=== PATIENT | male | born 1990 | race African-American/Black ===

== ENCOUNTER 2017-06-30 17:42 | Emergency (ER) | payer OTHER ==
[~2017-06-30] VITALS: Ht 162.6 cm; Wt 78.2 kg
[2017-06-30] MEDS ORDERED: BUSP10TA PO (17:48)
[2017-06-30] MEDS ORDERED: LEXA1TAB2 PO (17:48)
[2017-06-30] MEDS ORDERED: LIDOCAINE 1% MDV 20ML VIAL As Ordered ONE (19:13)
[2017-06-30] MEDS ORDERED: cefTRIAXone SOD 250 MG VIAL (J0696) IM ONE (19:15)
[2017-06-30] MEDS ORDERED: AZITHROMYCIN 250 MG TAB PO ONE (19:15)
[2017-06-30 19:34] VITALS: BP 142/71
== END 2017-06-30 19:35 | disposition home or self-care (01) ==
LOC: M ED 17:42
DX: R39.15 Urgency of urination (principal); F41.9 Anxiety disorder, unspecified; F17.210 Nicotine dependence, cigarettes, uncomplicated
CPT/HCPCS: 81001; 87491; 87591; 96372; 99284; J0696

== ENCOUNTER 2019-03-27 17:06 | Emergency (ER) | payer OTHER ==
[~2019-03-27] VITALS: Ht 162.6 cm; Wt 85.3 kg
[~2019-03-27 17:06] MED LIST: BUSP10TA PO; LEXA1TAB2 PO
[2019-03-27] MEDS ORDERED: BUPR150T3 PO (17:14)
[2019-03-27] MEDS ORDERED: VITA-122 PO (17:14)
[2019-03-27] MEDS ORDERED: HYDR-643 PO (17:14)
[2019-03-27] MEDS ORDERED: KETOROLAC TROMETHAMINE 10 MG TAB PO ONE (18:00)
[2019-03-27] MEDS ORDERED: PROMETHAZINE 25 MG TAB PO ONE (18:00)
[2019-03-27] MEDS ORDERED: diphenhydrAMINE 50 MG CAP PO ONE (18:00)
--- NOTE | 2019-03-27 19:10 | REPVR ---
EXAM: CT Head Without Contrast EXAM DATE/TIME: 03/27/2019 6:25 PM CLINICAL HISTORY: 28 years old, male; Pain; Headache not specified; Additional info: [employer] [facility], started suddenly 3 days ago TECHNIQUE: Imaging protocol: Computed tomography of the head without contrast. Radiation optimization: All CT scans at this facility use at least one of these dose optimization techniques: automated exposure control; mA and/or kV adjustment per patient size (includes targeted exams where dose is matched to clinical indication); or iterative reconstruction. COMPARISON: No relevant prior studies available. FINDINGS: Brain: No CT evidence of acute cortical infarct. No mass effect. No edema. There is no evidence of parenchymal hemorrhage. No extra-axial collections. No subarachnoid blood. Ventricles: The ventricular system is midline and appropriate in size. No hydrocephalus. Bones/joints: There is no evidence of acute fracture. Sinuses: The demonstrated paranasal sinuses are free of air-fluid level or suspicious mass. Mastoid air cells: Mastoids are free of acute inflammatory change. Soft tissues: No large soft tissue hematoma. Please correlate clinically. IMPRESSION: No acute intracranial injury demonstrated. No intracranial hemorrhage. No evidence of acute cortical infarct. No mass effect. No edema. Followup as clinically warranted. Electronically signed by: Ry Woodson On 03/27/2019 19:10:32 PM
[2019-03-27 19:45] VITALS: BP 134/85
== END 2019-03-27 19:50 | disposition home or self-care (01) ==
LOC: M ED 17:06
DX: R51 Headache (principal); F41.9 Anxiety disorder, unspecified; F32.9 Major depressive disorder, single episode, unspecified; Z79.899 Other long term (current) drug therapy

== ENCOUNTER 2021-03-23 19:20 | Emergency (ER) | payer OTHER ==
[~2021-03-23] VITALS: Ht 165.1 cm; Wt 91.9 kg
[~2021-03-23 19:20] MED LIST changes: +BUPR150T12 PO; +HYDR-643 PO; +VITA-122 PO
[2021-03-23] MEDS ORDERED: TRAZ-252 PO (19:58)
[2021-03-23 22:02] LABS: APPEARANCE, URINE CLEAR (CLEAR); BACTERIA, URINE AUTO NEGATIVE (NEGATIVE); BILIRUBIN, URINE AUTO NEGATIVE (NEGATIVE); BLOOD, URINE BLOOD NEGATIVE (NEGATIVE); COLOR, URINE YELLOW (YELLOW); GLUCOSE, URINE (UA) AUTO NEGATIVE (NEGATIVE); KETONE, URINE AUTO NEGATIVE (NEGATIVE); LEUKOCYTE ESTERASE, URINE AUTO TRACE (NEGATIVE); MUCUS, URINE SMALL (NEGATIVE); NITRITE, URINE AUTO NEGATIVE (NEGATIVE); PROTEIN, URINE AUTO NEGATIVE (NEGATIVE); RBC, URINE AUTO 5 /HPF (0-3); SPECIFIC GRAVITY URINE AUTO 1.029 (1.002-1.035); SQUAMOUS EPITHELIAL CELL UR AU 1 /HPF (0-6); UROBILINOGEN, URINE AUTO 0.2 mg/dL (0.0-2.0); WBC, URINE AUTO 7 /HPF (0-3)
[2021-03-23] MEDS ORDERED: KETOROLAC 30 MG/ML 1ML VIAL IV ONE (23:05)
[2021-03-23] MEDS ORDERED: NS 1,000 ML IV ONE (23:05)
[2021-03-23] MEDS ORDERED: ISOVUE-370 76% 100ML VIAL As Ordered ONE (23:13)
[2021-03-24 00:42] LABS: BASO % 0.3 % (0.0-1.0); EOS # 0.1 10^3/uL (0.0-0.5); EOS % 1.8 % (0.0-3.0); HEMATOCRIT 46.6 % (42.0-52.0); HEMOGLOBIN 15.5 g/dl (13.5-17.5); LYMPH % 48.8 % (24.0-44.0); MEAN CORPUSCULAR HEMOGLOBIN 29.5 pg (27.0-33.0); MEAN CORPUSCULAR HGB CONC 33.3 g/dl (32.0-36.5); MEAN CORPUSCULAR VOLUME 88.6 fl (80.0-96.0); MONO # 0.5 10^3/uL (0.0-0.8); MONO % 8.4 % (2.0-8.0); NEUTROPHILS # 2.5 10^3/uL (1.5-8.5); NEUTROPHILS % 40.5 % (36.0-66.0); PLATELET COUNT, AUTOMATED 266 10^3/uL (150-450); RED BLOOD COUNT 5.26 10^6/uL (4.30-6.10); WHITE BLOOD COUNT 6.1 10^3/uL (4.0-10.0)
[2021-03-24 01:18] LABS: ALBUMIN 4.2 GM/DL (3.2-5.2); ALT/SGPT 52 U/L (12-78); BILIRUBIN,DIRECT < 0.1 MG/DL (0.0-0.2); BILIRUBIN,TOTAL 0.7 MG/DL (0.2-1.0); LIPASE 105 U/L (73-393); TOTAL PROTEIN 7.8 GM/DL (6.4-8.2)
--- NOTE | 2021-03-24 02:59 | REPVR ---
PROCEDURE INFORMATION: Exam: CT Abdomen and Pelvis with Contrast Exam date and time: 03/24/21 (1:07am) Age: 30 years old Clinical indication: LLQ pain TECHNIQUE: Imaging protocol: Computed tomography of the abdomen and pelvis with contrast Radiation optimization: All CT scans at this facility use at least one of these dose optimization techniques: automated exposure control; mA and/or kV adjustment per patient size (includes targeted exams where dose is matched to clinical indication); or iterative reconstruction. Contrast material: Iso Contrast volume: 100 ml Contrast route: IV COMPARISON: No relevant prior studies available FINDINGS: Liver: Normal. No solid mass. Gallbladder and bile ducts: Normal. No calcified stones. No ductal dilatation. Pancreas: Normal. No ductal dilatation. Spleen: Normal. No splenomegaly. Adrenal glands: Normal. No mass. Kidneys and ureters: Normal. No hydronephrosis. Stomach and bowel: Unremarkable. No bowel obstruction. No mucosal thickening. Appendix: A normal appendix is visualized. Intraperitoneal space: Unremarkable. No free air. No significant fluid collection. Vasculature: Unremarkable. No abdominal aortic aneurysm. Lymph nodes: Unremarkable. No enlarged lymph nodes. Urinary bladder: Unremarkable as visualized. Reproductive: Unremarkable as visualized. Bones/joints: Unremarkable. No acute fracture. Soft tissues: Unremarkable. IMPRESSION: No acute findings. No definite LLQ pathology is appreciated. Electronically signed by: Loly Lara On 03/24/2021 02:58:57 AM
[2021-03-24] MEDS ORDERED: DICY10CA13 PO (03:59)
[2021-03-24] MEDS ORDERED: DICYCLOMINE 10 MG CAP PO ONE (04:00)
[2021-03-24 04:34] VITALS: BP 146/74
== END 2021-03-24 04:51 | disposition home or self-care (01) ==
LOC: M ED 19:20
DX: R10.9 Unspecified abdominal pain (principal); F32.9 Major depressive disorder, single episode, unspecified; F17.290 Nicotine dependence, other tobacco product, uncomplicated; Z79.899 Other long term (current) drug therapy
CPT/HCPCS: 74177; 80047; 80076; 81001; 83690; 85025; 96361; 96374; 99284; J1885; Q9967

== ENCOUNTER 2021-06-22 08:11 | Inpatient (IN) | payer OTHER ==
[~2021-06-22] VITALS: Ht 162.6 cm; Wt 89.9 kg
[~2021-06-22 08:11] MED LIST changes: +DICY10CA13 PO; +TRAZ-252 PO
[2021-06-22] MEDS ORDERED: BUSP15TA47 PO (08:22)
[2021-06-22] MEDS ORDERED: LUNE2TAB23 PO (08:22)
[2021-06-22] MEDS: NICOTINE 21MG/24HR 1 EA TRANSDERMAL TD SCH (09:00)
[2021-06-22 09:57] LABS: HEMATOCRIT 44.9 % (42.0-52.0); HEMOGLOBIN 15.1 g/dl (13.5-17.5); MEAN CORPUSCULAR HEMOGLOBIN 29.7 pg (27.0-33.0); MEAN CORPUSCULAR HGB CONC 33.6 g/dl (32.0-36.5); MEAN CORPUSCULAR VOLUME 88.4 fl (80.0-96.0); PLATELET COUNT, AUTOMATED 271 10^3/uL (150-450); RED BLOOD COUNT 5.08 10^6/uL (4.30-6.10); WHITE BLOOD COUNT 5.5 10^3/uL (4.0-10.0)
[2021-06-22 10:18] LABS: AMPHETAMINES LEVEL URINE NEGATIVE (NEGATIVE); BARBITURATES URINE NEGATIVE (NEGATIVE); BENZODIAZEPINES URINE NEGATIVE (NEGATIVE); CANNABINOIDS URINE NEGATIVE (NEGATIVE); COCAINE METABOLITE URINE NEGATIVE (NEGATIVE); METHADONE URINE NEGATIVE (NEGATIVE); OPIATES URINE NEGATIVE (NEGATIVE); PHENCYCLIDINE URINE NEGATIVE (NEGATIVE)
[2021-06-22 10:35] LABS: ACETAMINOPHEN LEVEL < 2.0 UG/ML (10.0-30.0); ALBUMIN 3.8 GM/DL (3.2-5.2); ALT/SGPT 36 U/L (12-78); BILIRUBIN,DIRECT 0.2 MG/DL (0.0-0.2); BILIRUBIN,TOTAL 0.7 MG/DL (0.2-1.0); BLOOD UREA NITROGEN 15 MG/DL (7-18); CALCIUM LEVEL 9.1 MG/DL (8.5-10.1); CARBON DIOXIDE LEVEL 27 MEQ/L (21-32); CHLORIDE LEVEL 110 MEQ/L (98-107); CREATININE FOR GFR 1.06 MG/DL (0.70-1.30); ETHYL ALCOHOL (ETHANOL) < 0.003 % (0.000-0.010); GLOMERULAR FILTRATION RATE > 60.0 (>60); GLUCOSE, FASTING 104 MG/DL (70-100); POTASSIUM SERUM 4.2 MEQ/L (3.5-5.1); SALICYLATE LEVEL < 1.7 MG/DL (5.0-30.0); SODIUM LEVEL 142 MEQ/L (136-145); THYROID STIMULATING HORMONE 0.427 uIU/ML (0.358-3.740); TOTAL PROTEIN 7.5 GM/DL (6.4-8.2)
[2021-06-22 10:40] LABS: RSV AMPLIFICATION NEGATIVE (NEGATIVE)
[2021-06-22] MEDS ORDERED: traZODone 50 MG TAB PO PRN (14:15)
[2021-06-22] MEDS ORDERED: ACETAMINOPHEN TAB 650MG DOSE (2X325MG) PO PRN (14:15)
[2021-06-22] MEDS ORDERED: MAALOX 30 ML SUSP *UDC PO PRN (14:15)
[2021-06-22] MEDS ORDERED: MOM 30ML SUSPENSION UDC PO PRN (14:15)
[2021-06-22] MEDS ORDERED: KETO2SHA8 TOP (14:16)
[2021-06-22] MEDS ORDERED: HOME MED LIST COMPLETE! XX SCH (14:20)
[2021-06-22 17:37] VITALS: BP 142/88
[2021-06-22] MEDS: hydrOXYzine 50 MG TAB PO PRN (18:00)
[2021-06-23 07:08] VITALS: BP 158/80
[2021-06-23] MEDS: hydrOXYzine 50 MG TAB PO PRN (09:01)
[2021-06-23] MEDS: NICOTINE 21MG/24HR 1 EA TRANSDERMAL TD SCH (09:01)
[2021-06-23] MEDS: busPIRone 5 MG TAB PO SCH ×2 (11:44→20:19)
[2021-06-23] MEDS: ESCITALOPRAM OXALATE 10 MG TAB (LEXAPRO) PO SCH (11:45)
[2021-06-23 16:19] VITALS: BP 118/67
[2021-06-23] MEDS: PRAZOSIN 1 MG CAP PO SCH (20:19)
[2021-06-24 06:14] VITALS: BP 128/60
[2021-06-24] MEDS: NICOTINE 21MG/24HR 1 EA TRANSDERMAL TD SCH (08:13)
[2021-06-24] MEDS: busPIRone 5 MG TAB PO SCH ×2 (08:13→20:25)
[2021-06-24] MEDS: ESCITALOPRAM OXALATE 10 MG TAB (LEXAPRO) PO SCH (08:13)
[2021-06-24] MEDS: hydrOXYzine 50 MG TAB PO PRN (14:25)
[2021-06-24] MEDS ORDERED: NICO21PAT TD (15:17)
[2021-06-24] MEDS ORDERED: LEXA1TAB PO (15:17)
[2021-06-24] MEDS ORDERED: TRAZ-252 PO (15:17)
[2021-06-24] MEDS ORDERED: MINI1CAP PO (15:17)
[2021-06-24] MEDS ORDERED: traZODone 100 MG TAB PO PRN (15:20)
[2021-06-24 17:57] VITALS: BP 139/105
[2021-06-24 20:25] VITALS: BP 139/105
[2021-06-24] MEDS: PRAZOSIN 1 MG CAP PO SCH (20:25)
[2021-06-25 06:55] VITALS: BP 146/67
[2021-06-25] MEDS: busPIRone 5 MG TAB PO SCH (08:13)
[2021-06-25] MEDS: ESCITALOPRAM OXALATE 10 MG TAB (LEXAPRO) PO SCH (08:13)
[2021-06-25] MEDS: NICOTINE 21MG/24HR 1 EA TRANSDERMAL TD SCH (08:18)
[2021-06-25] MEDS: hydrOXYzine 50 MG TAB PO PRN (11:11)
== END 2021-06-25 14:00 | disposition home or self-care (01) | DRG 885 ==
LOC: M ED 08:11 → M ED INP 14:12 → M PSY 16:14
PROVIDERS: ADMIT Psychiatry & Neurology Psychiatry; ATTEND Psychiatry & Neurology Psychiatry
DX: F32.1 Major depressive disorder, single episode, moderate (principal); R45.851 Suicidal ideations; F43.10 Post-traumatic stress disorder, unspecified; F41.1 Generalized anxiety disorder; Z91.82 Personal history of military deployment; Z20.822 Contact with and (suspected) exposure to COVID-19; Z79.899 Other long term (current) drug therapy; Z56.6 Other physical and mental strain related to work